=== PATIENT | male | born 1990 | race Caucasian/White ===

== ENCOUNTER → 2022-03-01 12:41 | Outpatient (CLI) | payer OTHER, SELFPAY ==
--- NOTE | 2022-03-01 | DI.RAD.S_ITS ---
PROCEDURE: FL SHOULDER INJECTION MR/CT RT INDICATIONS: Pain in right shoulder COMPARISON: [facility], MR, MR SHOULDER RT W CON, 03/01/2022, 13:29. TECHNIQUE: The indications, alternatives, benefits, risks, and complications of the procedure were explained to the patient. Written informed consent was obtained and placed in the chart. The shoulder was examined fluoroscopically and a site for needle placement chosen for entry into the glenohumeral joint from an anterior approach. The skin was prepped and draped in a sterile fashion, and 1% lidocaine infiltrated from skin down to joint capsule. A spinal needle was inserted into the glenohumeral joint, and a small amount of iodinated contrast media injected to confirm intra-articular placement of the needle tip. This was followed by approximately 12 mL dilute solution of a gadolinium containing MR contrast agent. The needle was removed and a dressing was applied. The patient was given postprocedural instructions and sent to the MR suite for MR imaging. FINDINGS: A single fluoroscopic spot image demonstrates intra-articular location of injected iodinated contrast. IMPRESSION: Successful fluoroscopically guided administration of dilute Gadolinium solution into the shoulder joint for MR arthrogram. Dictated by: Robert Bazan M.D. on 03/01/2022 at 15:03 Approved by: Robert Bazan M.D. on 03/01/2022 at 15:04
--- NOTE | 2022-03-01 | DI.MRI.S_ITS ---
PROCEDURE: MR SHOULDER RT W CON INDICATIONS: Pain in right shoulder TECHNIQUE: After the administration of 12 mL of dilute intra-articular Gadolinium contrast, oblique coronal T1 and T2 spin echo with fat saturation, oblique sagittal T1 spin echo with and without fat saturation, oblique sagittal T2 fast spin echo with fat saturation, axial T1 spin echo with fat saturation through the shoulder. COMPARISON: [facility], , CT SHOULDER INJECTION MR/CT RT, 03/01/2022, 13:07. FINDINGS: Image quality: Excellent. Rotator cuff: There is partial-thickness tear of the supraspinatus tendinitis with associated tendinitis. The infraspinatus and subscapularis tendons appear normal. No rotator cuff muscle atrophy on sagittal images. Bones and bursae: No fractures. Mild acromioclavicular joint degeneration. Edema in the lateral clavicular head. The acromion demonstrates conventional anatomy, without an os acromiale. Capsule and soft tissues: The labrum and glenohumeral ligaments appear intact. The long head of the biceps tendon demonstrates normal location and morphology. The rotator interval appears normal, without fibrosis. The coracohumeral ligament is of normal thickness. No intra-articular bodies. There is a 0.6 cm tear drop shaped nodular structure with low signal intensity on T1 and T2 weighted images, most likely a small air collection related to contrast injection. IMPRESSION: 1. Partial thickness tear of the supraspinatus tendon with associated tendinitis. 2. Mild acromioclavicular joint degeneration. 3. Edema in the right lateral clavicular head, either secondary to reactive edema or bone contusion. Dictated by: Belén Polanco M.D. on 03/01/2022 at 15:32 Approved by: Belén Polanco M.D. on 03/01/2022 at 16:03
== END ==
DX: M75.111 Incomplete rotator cuff tear or rupture of right shoulder, not specified as traumatic (principal); M19.011 Primary osteoarthritis, right shoulder; M77.8 Other enthesopathies, not elsewhere classified; M25.511 Pain in right shoulder
CPT/HCPCS: 23350; 73222; 77002